=== PATIENT | male | born 1960 | race Caucasian/White ===

== ENCOUNTER 2019-03-30 15:34 | Inpatient (IN) | payer OTHER ==
[~2019-03-30] VITALS: Ht 175.3 cm; Wt 73.3 kg
[2019-03-30] VITALS (12 sets, daily range): BP systolic 101–160; BP diastolic 67–93
[2019-03-30] MEDS ORDERED: COZAAR 25 MG TA25 M1 PO (15:39)
[2019-03-30 16:01] LABS: ABSOLUTE EOSINOPHILS 0.2 thou/uL (0.0-0.7); ABSOLUTE LYMPHOCYTES 2.7 thou/uL (0.8-5.3); ABSOLUTE MONOCYTES 1.1 thou/uL (0.0-1.2); ABSOLUTE NEUTROPHILS 4.7 thou/uL (1.6-8.1); BASOPHILS 0.4 %; EOSINOPHILS 1.8 %; HEMATOCRIT 46.1 % (42.0-52.0); HEMOGLOBIN 15.8 gm/dL (14.0-18.0); LYMPHOCYTES 31.4 %; MCH 33.1 pg (26.0-34.0); MCHC 34.3 g/dL (28.0-37.0); MCV 96.5 fL (80.0-100.0); MONOCYTES 12.1 %; MPV 7.2 fl. (7.2-11.1); NUCLEATED RBCS 0 /100WBC; PLATELET COUNT* 285 thou/uL (150-400); POLYS 54.3 %; RBC 4.78 mil/uL (4.50-6.00); RDW-CV 13.8 % (10.5-14.5); WBC 8.7 thou/uL (4.0-11.0)
[2019-03-30 16:13] LABS: ANION GAP 14 mmol/L (7-16); BUN 18 mg/dL (7-18); CHLORIDE 99 mmol/L (98-107); CO2 24 mmol/L (21-32); CREATININE 0.9 mg/dL (0.6-1.3); GLUCOSE 124 mg/dL (70-99); POTASSIUM 3.7 mmol/L (3.5-5.1); SODIUM 137 mmol/L (136-145)
[2019-03-30 16:24] LABS: PROTIME 10.7 Seconds (9.20-11.50)
[2019-03-30 16:25] LABS: APTT 24.8 Seconds (25.0-31.3)
[2019-03-30 16:26] LABS: ALBUMIN 4.3 g/dL (3.4-5.0); ALKALINE PHOSPHATASE 63 U/L (46-116); CK-MB MASS 0.9 ng/mL (<0.5-3.6); LIPASE 162 U/L (73-393); NT-PRO BRAIN NAT PEPTIDE 16 pg/mL (<300); SGOT 18 U/L (15-37); SGPT 30 U/L (30-65); TOTAL BILIRUBIN 0.4 mg/dL (<0.1-1.0); TOTAL PROTEIN 7.9 g/dL (6.4-8.2); TROPONIN-I LEVEL <0.06 ng/mL (<0.06)
[2019-03-31] VITALS (18 sets, daily range): BP systolic 99–136; BP diastolic 63–79
[2019-03-31 04:41] LABS: HEMATOCRIT 44.6 % (42.0-52.0); MCH 32.8 pg (26.0-34.0); MCHC 33.7 g/dL (28.0-37.0); MCV 97.3 fL (80.0-100.0); MPV 7.3 fl. (7.2-11.1); RBC 4.58 mil/uL (4.50-6.00); RDW-CV 13.7 % (10.5-14.5); WBC 9.6 thou/uL (4.0-11.0)
[2019-03-31 04:55] LABS: ANION GAP 14 mmol/L (7-16); BUN 13 mg/dL (7-18); CALCIUM 8.9 mg/dL (8.5-10.1); CHLORIDE 103 mmol/L (98-107); CHOLESTEROL 211 mg/dL (<200); CO2 21 mmol/L (21-32); CREATININE 0.6 mg/dL (0.6-1.3); GLUCOSE 150 mg/dL (70-99); HDL CHOLESTEROL 67 mg/dL (>40); LDL CHOLESTEROL 141 mg/dL (<100); SODIUM 138 mmol/L (136-145); TC:HDL 3.1 Ratio (Not establshd); TRIGLYCERIDE 19 mg/dL (<150); VLDL 4 mg/dL (<40)
[2019-03-31 05:00] LABS: SERUM ASSESSMENT CLEAR
[2019-03-31 05:29] LABS: TROPONIN-I LEVEL 49.59 ng/mL (<0.06)
--- NOTE | 2019-03-31 09:54 | EKG ---
[place] [address] ELECTROCARDIOGRAM REPORT Name: BUDDY,AME Arlette Room: [address] ADM IN .R.#: [id number] Admission: 03/30/19 Attend Phys: Tino North MD, Discharge: Date of : 62 Report #: [id number] THIS REPORT FOR: //name// [facility] ED Test Date: 2019-03-30 Test Time: 15:37:48 Pat Name: AME GOODWIN Department: Room: [facility] Gender: M Director Of Food And Beverage Services: : 1960 Requested By: Andrzej Wright Order Number: [id number] MD: Cornel Eaton Measurements Intervals [place] Rate: 60 P: 57 [place]: 143 QRS: 36 QRSD: 98 T: 44 QT: 427 QTc: 427 Interpretive Statements Sinus rhythm Atrial premature complex Borderline ST depression, lateral leads ST elevation, consider anterior injury No previous ECG available for comparison Electronically Signed On 03-31-2019 9:54:25 CDT by Cornel Eaton [email or web address] <ELECTRONICALLY SIGNED> By: Nicole Eaton MD, [facility] 03/31/19 0954 1537 1537 Nicole Eaton MD, [facility] /EPI
--- NOTE | 2019-03-31 11:27 | CARD ---
[address] [address] CARDIAC CATH REPORT Name: AME GOODWIN Room: [address] IN ..#: [id number] Admission: 03/30/19 Attend Phys: Tino North MD, Discharge: Date of : 62 Report #: [id number] THIS REPORT FOR: //name// APPROVED REPORT Study performed: 03/30/2019 15:49:02 Patient Details The patient is a 58 year-old male Event Personnel Tino North Hide House Supervisor, Concepcion Arriola RN Associate Consulting Engineer, Kam Mueller (Nataly) Raúl Barraza Brad VEHICLE SERVICE AGENT Monitor, Blanche Brown RTR Monitor Procedures Performed Left Heart Cath w/or w/o Coronaries [id number] [facility] [address] w/wo Plasty Single LAD [id number] Cardioversion; acute ST segment elevation anterior CO intervention Indication STEMI Risk Factors Family History, Hypercholesterolemia Admission/Lab Medications/Medications given during procedure Angiomax bolus and infusion Procedure Narrative The patient was brought emergently to the Cardiac Catheterization Laboratory and was prepped and draped in a sterile manner. The right femoral was infiltrated with 2% Lidocaine subcutaneous anesthesia. A Dickson 6 FR sheath was inserted into the RFA. Coronary angiography was performed using coronary diagnostic catheters. The right coronary system was accessed and visualized with a JR 4 6F catheter. The left coronary system was accessed and visualized with a JL 4 6F catheter. The left ventricle was accessed and visualized with a STRAIGHT PIG 6F catheter. Left ventricular/Aortic Valve gradient assessed via catheter pullback. Pre-demployment femoral angiogram was performed . Closure device was deployed with a Fr Angioseal STS 6Fr. The patient tolerated the procedure well and there were no complications associated with the procedure. After PCI a cardioversion was performed at 300 J rhythm from atrial fibrillation to sinus rhythm at a normal rate; ; the patient was given 150 [place] [address] CARDIAC CATH REPORT Name: AME GOODWIN Room: [address]#: [id number] Admission: 03/30/19 Attend Phys: Tino North MD, Discharge: Date of : 62 Report #: [id number] sedated with 4 mg of versed prior to the cardioversion Intraoperative Conscious Sedation Sedation start time: 1631 Case end Time: 1706 Versed 6 mg Fluoro Time: 13.8 minutes Dose: DAP 370220 cGycm2 1728 mGy Contrast Type and Amount: Visipaque 400 ml Coronary Angiography The patient's coronary anatomy is right dominant. Diagnostic Cath Left Main 0% narrowing LAD 100% mid LAD occlusion with local thrombus at the site; there is 50% proximal first diagonal narrowing Circumflex 20% proximal narrowing Right Coronary Dominant vessel with 40% proximal narrowing Left Ventriculography Left Ventriculography was not performed. Hemodynamics The aortic pressure is 112/79 mmHg with a mean of 94 mmHg. The left ventricular pressure is 90/0 mmHg with a mean of mmHg. The left ventricular end diastolic pressure is 10 mmHg. There was no gradient across the aortic valve upon pullback. PCI Technique Lesion Anticoagulation was achieved with Angiomax. Patient was preloaded with Angiomax IV 10.5 mg per kg. Percutaneous coronary intervention was performed on the mid left anterior descending artery segment. The lesion stenosis prior to intervention was 100% with MAYKEL 0 flow. A 6F XB LAD 3.5 Guide Catheter was used to engage the LEFT ostium. A IG: ProwaterFlex 180CM Interventional Guidewire was used to cross the lesion. BALLOON DILATION A Balloon catheter Trek RX 2.5 X 12 was inserted and inflated up to 16.00atm for 9seconds. Additional Inflation: 10.00atm for 19seconds[place] [address] CARDIAC CATH REPORT Name: AME GOODWIN Room: [address]#: [id number] Admission: 03/30/19 Attend Phys: Tino North MD, Discharge: Date of : 62 Report #: [id number] A drug-eluting stent Xience Rosina 2.95Y21cx was inserted and inflated up to 16.00atm for 9seconds. Additional Inflation: 18.00atm for 12seconds. Additional Inflation: 18.00atm for 10seconds. POST STENT DEPLOYMENT BALLOON DILATION A Balloon catheter NC Trek RX 3.0 X 12 was inserted and inflated up to 14.00atm for 5seconds. Additional Inflation: 17.00atm for 6seconds. Additional Inflation: 20.00atm for 8seconds. NC TREK 3.25 X 12 inflated to 15 DANO/ 8 SEC, 16 DANO/ 9 SEC, 18 DANO/ 8 SEC, 17 DANO/ 6 SEC, and 15 DANO/ 7 SEC Final angiography reveals 0 % stenosis with MAYKEL 3 flow. Conclusion #[address] segment elevation myocardial infarction #2 significant coronary artery disease characterized by the following: A 100% mid LAD occlusion with prominent intraluminal thrombus and 50% first diagonal narrowing B 20 percent proximal circumflex and proximal right coronary narrowings #3 normal left-sided hemodynamics study #4 successful percutaneous coronary intervention with deployment of a drug-eluting stent at site of 100% mid LAD occlusion with 0% residual narrowing no residual thrombus and MAYKEL-3 flow to the distal vessel #5 successful DC cardioversion with the rhythm reverting from atrial fibrillation to sinus rhythm at normal rate Recommendations Cardiac Risk Reduction Program Aggressive Medical Therapy Medications Administered Aspirin (any) [place] [address] CARDIAC CATH REPORT Name: AME GOODWIN Room: [address] IN [facility]#: [id number] Admission: 03/30/19 Attend Phys: Tino North MD, Discharge: Date of : 62 Report #: [id number] Diagnostic Cath Approved by: Tino North MD Date/Time: 03/31/2019 11:26:10 <ELECTRONICALLY SIGNED> By: Tino North MD, [facility] 03/31/19 1126 1126 1126Jonaga North MD, [facility] /INF
--- NOTE | 2019-03-31 12:05 | H ---
[address] [address] HISTORY AND PHYSICAL Name: AME GOODWIN Room: [address] IN M.R.#: [id number] Admission: 03/30/19 Attend Phys: Tino North MD, Discharge: Date of : 62 Report #: [id number] THIS REPORT FOR: //name// CC: Tino Molina DATE OF SERVICE: 03/30/2019 ADMITTING HISTORY AND PHYSICAL HISTORY OF PRESENT ILLNESS: The patient is a pleasant 58-year-old male. 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 He returned home and then developed severe central chest discomfort, which he felt like a bubble, which was bursting and radiated through to the back. This persisted and he sought assistance by driving himself to the [facility] Emergency Room. EKG there suggested acute anterior injury and subsequently developed ventricular fibrillation in the ER, required DC cardioversion with administration of 300 mg of amiodarone subsequent to that. He was alert on my arrival there and in atrial fibrillation with a tachycardic response. He noted persistent chest discomfort, but denied shortness of breath. He denies any warning symptoms prior to today. Major risk factor for coronary disease is a positive family history in multiple first-degree relatives. He denies diabetes, hypercholesterolemia or hypertension and he is not a smoker. PAST MEDICAL HISTORY: Unremarkable. SOCIAL HISTORY: The patient is , is a nonsmoker. PHYSICAL EXAMINATION: GENERAL: Demonstrates an acutely distressed middle-aged male. VITAL SIGNS: Blood pressure is 90/60, pulse rate 110 and irregularly irregular and respirations are 18 per minute. NECK: Jugular venous pressure is normal. CHEST: Clear. CARDIAC: Reveals an irregularly irregular rhythm without murmurs or gallops. ABDOMEN: Soft. EXTREMITIES: Without edema with intact femoral, pedal and radial pulses. DIAGNOSTIC DATA: Electrocardiogram reveals sinus rhythm with acute anterior wall injury. IMPRESSION: 1. Acute anterior wall [place] segment [place] [address] HISTORY AND PHYSICAL Name: AME GOODWIN Arlette Room: [address] IN [facility]#: [id number] Admission: 03/30/19 Attend Phys: Tino North MD, Discharge: Date of : 62 Report #: [id number] 2. Ventricular fibrillation in the context of #1. 3. Positive family history of premature coronary disease. RECOMMENDATIONS: Given the aforementioned scenario with acute anterior wall ST segment elevation myocardial infarction complicated by ventricular fibrillation in the ER and return to atrial fibrillation with normal cognitive function, I recommend an emergent catheterization with strong consideration of intervention contingent on the results of that study. This was discussed with family, we will plan to proceed with cardiac catheterization emergently in the late afternoon of 03/30/2019. Critical care time is 40 minutes, from 1704 to 1744 hours on 03/30/2019. <ELECTRONICALLY SIGNED> By: Tino North MD, [facility] 03/31/19 1205 1744 1851John Fredy North MD, [facility] /nt
[2019-04-01 04:00] VITALS: BP 89/55
[2019-04-01 08:00] VITALS: BP 113/78
[2019-04-01] MEDS ORDERED: ASPIR 8181 MG PO (11:12)
--- NOTE | 2019-04-01 11:12 | 2DMMODE ---
[place] [address] 2 D/M-MODE ECHOCARDIOGRAM Name: AME GOODWIN Room: [address] IN .R.#: [id number] Admission: 03/30/19 Attend Phys: Linda Conrad Discharge: Date of : 62 Date of Service: 04/01/19 1111 Report #: [id number] THIS REPORT FOR: //name// APPROVED REPORT Study performed: 03/31/2019 14:00:12 EXAM: Comprehensive 2D, Doppler, and color-flow Echocardiogram Patient Location: Bedside BSA: 1.88 HR: 65 bpm BP: 111/77 mmHg Other Information Study Quality: Fair Indications Arrhythmia Evaluation of Left Ventricle Post MT 2D Dimensions IVSd: 11.71 (7-11mm) LVOT Diam: 22.40 (18-24mm) LVDd: 45.42 mm PWd: 9.29 (7-11mm) Ascending Ao: 27.55 (22-36mm) LVDs: 33.73 (25-40mm) Aortic Root: 30.05 mm Volumes Left Atrial Volume (Systole) LA ESV Index: 21.60 mL/m2 Aortic Valve AoV Peak Butch.: 1.16 m/s AO Peak Gr.: 5.42 mmHg LVOT Max P.78 mmHg AO Mean Gr.: 3.37 mmHg LVOT Mean P.55 mmHg LVOT Max V: 0.83 m/s AO V2 VTI: 20.84 cm LVOT Mean V: 0.59 m/s ARLEEN (VTI): 3.26 cm2 LVOT V1 VTI: 17.24 cm Mitral Valve E/A Ratio: 0.86 MV Decel. Time: 155.40 ms MV E Max Butch.: 0.55 m/s MV PHT: 45.06 [place] [address] 2 D/M-MODE ECHOCARDIOGRAM Name: AME GOODWIN Room: [address] IN .R.#: [id number] Admission: 03/30/19 Attend Phys: Linda Conrad Discharge: Date of : 62 Date of Service: 04/01/19 1111 Report #: [id number] MVA (PHT): 4.88 cm2 TDI E/Lateral E': 5.50 E/Medial E': 6.88 Medial E' Butch.: 0.08 m/s Lateral E' Butch.: 0.10 m/s Pulmonary Valve PV Peak Butch.: 0.91 m/s PV Peak Gr.: 3.29 mmHg Left Ventricle The left ventricle is normal size. Regional wall motion abnormalities are noted. There is normal left ventricular wall thickness. Left ventricular systolic function is mildly decreased. LVEF is 45%. Grade I - abnormal relaxation pattern. Right Ventricle The right ventricle is normal size. The right ventricular systolic function is normal. Atria The left atrium size is normal. The right atrium size is normal. Aortic Valve The aortic valve is normal in structure. No aortic regurgitation is present. There is no aortic valvular stenosis. Mitral Valve The mitral valve is normal in structure. Trace mitral regurgitation. No evidence of mitral valve stenosis. Tricuspid Valve The tricuspid valve is normal in structure. There is no tricuspid valve regurgitation noted. Pulmonic Valve The pulmonary valve is normal in structure. There is no pulmonic valvular regurgitation. Great Vessels The aortic root is normal in size. IVC is normal in size and collapses >50% with inspiration. Pericardium There [place] [address] 2 D/M-MODE ECHOCARDIOGRAM Name: AME GOODWIN Arlette Room: [address] IN [facility]#: [id number] Admission: 03/30/19 Attend Phys: Linda Conrad Discharge: Date of : 62 Date of Service: 04/01/19 1111 Report #: [id number] <Conclusion> Regional wall motion abnormalities are noted. Trace mitral regurgitation. The left ventricle is normal size. There is normal left ventricular wall thickness. Left ventricular systolic function is mildly decreased. LVEF is 45%. Grade I - abnormal relaxation pattern. <ELECTRONICALLY SIGNED> By: Nicole Eaton MD, [facility] 04/01/19 1111 1111 1111 Nicole Eaton MD, [facility] /INF
[2019-04-01] MEDS ORDERED: LIPITOR40 MG PO (11:18)
[2019-04-01] MEDS ORDERED: COREG6.25 MG PO (11:19)
[2019-04-01] MEDS ORDERED: EFFIENT10 MG PO (11:21)
[2019-04-01 11:29] VITALS: BP 113/78
--- NOTE | 2019-04-02 11:53 | EKG ---
[place] [address] ELECTROCARDIOGRAM REPORT Name: TISH GOODWIN Room: [address] [place] M.R.#: [id number] Admission: 03/30/19 Attend Phys: Tino North MD, Discharge: 04/01/19 Date of : 62 Report #: [id number] THIS REPORT FOR: //name// [place] ED Test Date: 2019-03-30 Test Time: 15:44:45 Pat Name: TISH GOODWIN Department: Room: [address] Gender: M Laborer/Grade Check: ANDRE : 1960 Requested By: Nati Herman Order Number: [id number] Reading MD: Tino North Measurements Intervals [place] Rate: 60 P: 46 [place]: 144 QRS: 27 QRSD: 96 T: 37 QT: 430 QTc: 430 Interpretive Statements Sinus rhythm Minimal ST depression, lateral leads ST elevation, consider anterior injury Compared to ECG 03/30/2019 15:37:48 Atrial premature complex(es) no longer present ST (T wave) deviation still present Myocardial infarct finding still present Electronically Signed On 04-02-2019 11:52:55 CDT by Tino North [email or web address] <ELECTRONICALLY SIGNED> By: Tino North MD, [facility] 04/02/19 1152 1544 1544 Tino North MD, [facility] /EPI
--- NOTE | 2019-04-02 11:55 | EKG ---
[place] [address] ELECTROCARDIOGRAM REPORT Name: TISH GOODWIN Room: [address] [place] M.R.#: [id number] Admission: 03/30/19 Attend Phys: Tino North MD, Discharge: 04/01/19 Date of : 62 Report #: [id number] THIS REPORT FOR: //name// [facility] Test Date: 2019-03-31 Test Time: 03:41:29 Pat Name: TISH GOODWIN Department: Room: [facility] Gender: M Mail Messenger Contractor: RB : 1960 Requested By: Tino North Order Number: [id number] Reading MD: Tino North Measurements Intervals [place] Rate: 54 P: 38 [place]: 154 QRS: 11 QRSD: 104 T: 21 QT: 475 QTc: 451 Interpretive Statements Sinus rhythm Evolved anterior infarct Compared to ECG 03/30/2019 15:37:48 Atrial premature complex(es) no longer present ST (T wave) deviation no longer present Myocardial infarct finding still present Electronically Signed On 04-02-2019 11:54:51 CDT by Tino North [email or web address] <ELECTRONICALLY SIGNED> By: Tino North MD, [facility] 04/02/19 1154 0341 0341 Tino North MD, [facility] /EPI
== END 2019-04-01 12:45 | disposition home or self-care (01) | DRG 246 ==
LOC: M.ERS 15:34 → M.CL 15:34 → M.ICU 18:00 → M.TBA-CV 18:00 → M.ICU 18:04 → M.2W 03-31 17:13
PROVIDERS: Family Medicine; ADMIT Internal Medicine
PROC: 4A023N7 Measurement of Cardiac Sampling and Pressure, Left Heart, Percutaneous Approach (ICD-10-PCS; principal; 2019-03-30)
PROC: B211YZZ Fluoroscopy of Multiple Coronary Arteries using Other Contrast (ICD-10-PCS; principal; 2019-03-30)
PROC: 027034Z Dilation of Coronary Artery, One Artery with Drug-eluting Intraluminal Device, Percutaneous Approach (ICD-10-PCS; principal; 2019-03-30)
PROC: B41FYZZ Fluoroscopy of Right Lower Extremity Arteries using Other Contrast (ICD-10-PCS; principal; 2019-03-30)
DX: I21.09 ST elevation (STEMI) myocardial infarction involving other coronary artery of anterior wall (principal); I49.01 Ventricular fibrillation; I10 Essential (primary) hypertension; Z79.899 Other long term (current) drug therapy; Z82.49 Family history of ischemic heart disease and other diseases of the circulatory system

== ENCOUNTER → 2020-03-18 | Outpatient (CLI) | payer BC ==
[~2020-03-18] MED LIST: ASPIR 8181 MG PO; COREG6.25 MG PO; COZAAR 25 MG TA25 M1 PO; EFFIENT10 MG PO; LIPITOR40 MG PO
--- NOTE | 2020-03-18 16:06 | CARDNUC ---
[place] [address] CARDIAC NUCLEAR IMAGING REPORT Name: TISH GOODWIN Room: [facility]#: [id number] Admission: 03/18/20 Attend Phys: Linda Conrad Discharge: Date of : 62 Date of Service: 03/18/20 1605 Report #: [id number] THIS REPORT FOR: cc: Tino Molina John E. DO Liston, Michael J. MD [facility] ~ ADDENDUM APPROVED REPORT Imaging Protocol: Stress Tc-99m/Rest Tc-99m 1 day Study performed: 03/18/2020 13:00:00 Indication: CAD Patient Location: Out-Patient Stress Tech: Tiera Bassett Stress Nurse: Natalia Rider RN NM Tech:GEOVANNY Post Ht: 5 ft 7 in Wt: 175 lbs BSA: 1.91 m2 HR: 52 bpm BP: 144/84 mmHg BMI: 27.40 Medical History Medical History: CAD s/p MS, Atrial Fibrillation, Diabetes, Hyperlipidemia, V-fib Medications: Carvedilol, nitroglycerin, Effient, losartan Allergies: Lisinopril, contrast Cardiac Risk Factors: Age greater than 45, hyperlipidemia, hypertension, diabetes, family history Previous Cardiac Procedures: Percutaneous coronary intervention Exercise History: Physically active Meds Held (24 hrs): Beta-zeynep Resting Data Rest SPECT myocardial perfusion imaging was performed in supine position 30 minutes following the intravenous injection of 9.3 mCi of Tc-99m Sestamibi. Time of rest injection: 13:20 The images were gated to evaluate regional wall motion and calculate left ventricular ejection fraction. Administration Route: IV Administration Site: [place] [address] CARDIAC NUCLEAR IMAGING REPORT Name: TISH GOODWIN Room: [facility]#: [id number] Admission: 03/18/20 Attend Phys: Linda Conrad Discharge: Date of : 62 Date of Service: 03/18/20 1605 Report #: [id number] At peak stress, the patient was injected intravenously with 32.5mCi of Tc-99m Sestamibi. Time of stress injection: 14:45 Administration Route: IV Administration Site: Right Hand Heart Rate at time of stress injection: 162 bpm. Patient continued to exercise for 1 minute(s). Gated Stress SPECT was performed 30 minutes after stress injection. The images were gated to evaluate regional wall motion and calculate left ventricular ejection fraction. Prone imaging was performed. Stress Test Details Stress Test: Exercise stress testing was performed using a [place] protocol. HR Max Heart Rate (APMHR): 162 bpm Resting HR: 52 bpm Target HR (85% APMHR): 137 bpm Max HR Achieved: 162 bpm % of APMHR: 100 Recovery HR: 87 bpm HR response to stress: Normal HR response to stress BP Resting BP: 144/84 mmHg Max BP: 235/105 mmHg Recovery BP: 150/97 mmHg BP response to stress: Abnormal hypertensive response to stress. ECG Resting ECG: Sinus Rhythm Stress ECG: Sinus Tachycardia ST Change: Horizontal ST depression Maximum ST Deviation: 0.5 mm Arrhythmia: None Recovery ECG: Sinus Rhythm Recovery ST Change: Horizontal ST depression Recovery ST Deviation: 0.5 mm Recovery Arrhythmia: None Clinical The patient tolerated standard [place] protocol exercise without significant cardiac [place] [address] CARDIAC NUCLEAR IMAGING REPORT Name: TISH GOODWIN Room: [facility]#: [id number] Admission: 03/18/20 Attend Phys: Linda Conrad Discharge: Date of : 62 Date of Service: 03/18/20 1605 Report #: [id number] Exercise was discontinued due to attainment of target heart rate. Stress ECG Conclusion The baseline twelve-lead EKG shows sinus rhythm without significant ST segment abnormality. EKGs obtained during and post exercise shows sinus rhythm and sinus tachycardia with 0.[address] segment depression. There were no stress-induced arrhythmias. Study Quality Study: Good Artifact: Mild Diaphragmatic artifact Study Data At rest, the left ventricular ejection fraction was 68%.. Post stress, the left ventricular ejection was 63%.. TID = 0.83. Perfusion Perfusion images obtained in the supine position at rest and post exercise stress show some mild photopenia in the inferior wall that resolves completely with post-rest prone imaging suggesting diaphragmatic attenuation artifact. There were no other significant fixed or reversible defects identified. Post stress prone imaging shows uniform uptake of the radioisotope throughout the myocardium. Wall Motion Normal left ventricular wall motion. Nuclear Conclusion ECG Findings: negative for ischemia Clinical Findings: negative for ischemia Nuclear Findings: negative for ischemia Exercise Capacity: normal Left Ventricular Function: normal Risk Study: low Perfusion study show no defect to suggest infarct or ischemia. Left ventricular systolic function appears normal on gated studies. This is a low risk study. <Conclusion> The baseline twelve-lead EKG shows sinus rhythm without significant ST segment abnormality. EKGs obtained during [place] [address] CARDIAC NUCLEAR IMAGING REPORT Name: TISH GOODWIN Room: [facility]#: [id number] Admission: 03/18/20 Attend Phys: Linda Conrad Discharge: Date of : 62 Date of Service: 03/18/20 1605 Report #: [id number] sinus rhythm and sinus tachycardia with 0.[address] segment depression. There were no stress-induced arrhythmias. <ELECTRONICALLY SIGNED> By: Byron Caldwell MD, FAC 03/18/20 1605 1605 1605 Byron Caldwell MD, [facility] /INF
== END ==
LOC: M.NUC 09-19 15:24
PROVIDERS: ATTEND Internal Medicine
DX: I21.02 ST elevation (STEMI) myocardial infarction involving left anterior descending coronary artery (principal); I25.10 Atherosclerotic heart disease of native coronary artery without angina pectoris; R00.0 Tachycardia, unspecified; E78.00 Pure hypercholesterolemia, unspecified; Z95.5 Presence of coronary angioplasty implant and graft; Z82.49 Family history of ischemic heart disease and other diseases of the circulatory system